=== PATIENT | female | born 1990 | race African-American/Black ===

== ENCOUNTER 2017-01-20 22:21 | Emergency (ER) | payer OTHER ==
[~2017-01-20] VITALS: Ht 162.6 cm; Wt 98.6 kg
[~2017-01-20 22:21] MED LIST: BACTRIM,SEPT1 TABLET PO; CITRATE OF MAG296 ML PO; COLACE100 MG PO; DOCUSATE SODIU100 MG PO; ENDOCET 5-3251 EACH PO; FLONASE16 G1 BOTH NARES; HYDROCODON-ACE1 EAC7 PO; IBUPROFEN800 MG PO; KEFLEX500 MG PO; MACROBID100 MG PO; MIRALAX17 GM PO; MOTRIN800 MG PO; MUCUS RELIEF600 M1 PO; NAPROSYN500 MG PO; NAPROXEN500 MG PO; NEO-SYNEPHRINE-15 M1 BOTH NARES; NIFEDIPINE ER30 MG PO; NOHOMEMEDS; NORCO 5/3251 TABLET PO; NORCO 7.5/321 TABLET PO; PERCOCET 5/31 TABLET PO; PRENATAL TABLE1 EAC3 PO; PROTONIX40 MG PO; REGLAN10 MG PO; ULTRAM50 MG PO; VALTREX1000 MG PO; VOLTAREN 1% GE100 GM TP; ZOFRAN ODT4 MG PO; ZYRTEC10 M2 PO
[2017-01-21 00:37] LABS: HEMATOCRIT 37.7 % (36.0-46.0); MCH 27.5 PG (29.0-34.0); MCHC 32.1 G/DL (30.0-36.0); MCV 85.7 FL (83-99); MEAN PLAT.VOLUME 9.2 uM^3 (9.5-12.4); PLATELET COUNT 300 K/uL (156-360); RBC DIS.WIDTH-CV 12.3 % (11.8-14.6); RBC DIS.WIDTH-SD 38.6 % (39-53)
[2017-01-21 00:50] LABS: CHLORIDE 110 mEq/L (99-109); POTASSIUM 3.3 mEq/L (3.7-5.4); SODIUM 141 mEq/L (136-147)
[2017-01-21 00:53] LABS: GLUCOSE 89 mg/dL (70-99)
[2017-01-21 00:54] LABS: ANION GAP 8 MEQ/L (2-14)
[2017-01-21 00:55] LABS: TOTAL BILIRUBIN 0.1 mg/dL (0.0-1.0)
[2017-01-21 00:56] LABS: ALKALINE PHOSPHATASE 80 IU/L (3-129); GFR ESTIMATE (CALCULATED) > 59 mL/min/
[2017-01-21 00:57] LABS: UREA NITROGEN (BUN) 11 mg/dL (9-23)
[2017-01-21 01:00] LABS: LIPASE 33 U/L (1.0-51.0)
[2017-01-21 01:06] LABS: QUANTITATIVE HCG < 4.0 MIU/ML
[2017-01-21 02:12] LABS: BILIRUBIN NEGATIVE; BLOOD NEGATIVE; COLOR YELLOW ((YELLOW)); GLUCOSE (STRIP) NEGATIVE; KETONES 5; LEUKOCYTES NEGATIVE; NITRITE NEGATIVE; PROTEIN (STRIP) 30; SPECIFIC GRAVITY 1.032 (1.000-1.030); UROBILINOGEN 0.2 MG/DL (0.2-1.0)
[2017-01-21 02:14] LABS: ADD MIUA? NO; UCUL ADDED? NO
[2017-01-21] MEDS ORDERED: PHENERGAN DM SYR1 ML PO (02:32)
[2017-01-21 02:51] VITALS: BP 118/74
== END 2017-01-21 02:52 | disposition home or self-care (01) ==
LOC: EME 22:21
PROVIDERS: Physician Assistant
DX: B34.9 Viral infection, unspecified (principal); I10 Essential (primary) hypertension; F17.200 Nicotine dependence, unspecified, uncomplicated
CPT/HCPCS: 71020; 80053; 81003; 83690; 84702; 85027; 99281; 99284; Q0169

== ENCOUNTER 2017-02-17 02:07 | Emergency (ER) | payer OTHER ==
[~2017-02-17] VITALS: Ht 162.6 cm; Wt 102.1 kg
[~2017-02-17 02:07] MED LIST changes: +PHENERGAN DM SYR1 ML PO
[2017-02-17 02:47] LABS: HEMATOCRIT 37.4 % (36.0-46.0); MCH 27.7 PG (29.0-34.0); MCHC 32.9 G/DL (30.0-36.0); MCV 84.2 FL (83-99); MEAN PLAT.VOLUME 9.3 uM^3 (9.5-12.4); PLATELET COUNT 304 K/uL (156-360); RBC DIS.WIDTH-CV 12.5 % (11.8-14.6); RED BLOOD COUNT 4.44 M/uL (3.80-5.20); WHITE BLOOD COUNT 9.4 K/uL (4.1-10.2)
[2017-02-17 02:58] LABS: CHLORIDE 110 mEq/L (99-109); POTASSIUM 3.7 mEq/L (3.7-5.4); SODIUM 140 mEq/L (136-147)
[2017-02-17 03:00] LABS: GLUCOSE 108 mg/dL (70-99)
[2017-02-17 03:01] LABS: ANION GAP 8 MEQ/L (2-14)
[2017-02-17 03:02] LABS: TOTAL BILIRUBIN 0.2 mg/dL (0.0-1.0)
[2017-02-17 03:03] LABS: ALKALINE PHOSPHATASE 72 IU/L (3-129)
[2017-02-17 03:04] LABS: GFR ESTIMATE (CALCULATED) > 59 mL/min/
[2017-02-17 03:05] LABS: UREA NITROGEN (BUN) 9 mg/dL (9-23)
[2017-02-17 03:09] LABS: TROP-I INTERPRETATION NEGATIVE; TROPONIN-I < 0.01 ng/mL (0.0-0.30)
[2017-02-17 03:13] LABS: QUANTITATIVE HCG < 4.0 MIU/ML
[2017-02-17 04:37] VITALS: BP 125/71
== END 2017-02-17 04:50 | disposition home or self-care (01) ==
LOC: EME 02:07
PROVIDERS: Emergency Medicine
DX: R60.0 Localized edema (principal); I10 Essential (primary) hypertension; F17.200 Nicotine dependence, unspecified, uncomplicated
CPT/HCPCS: 71010; 80053; 81003; 83880; 84484; 84702; 85027; 93005; 93970; 99281; 99285

== ENCOUNTER 2017-05-22 07:37 | Emergency (ER) | payer OTHER ==
[~2017-05-22] VITALS: Ht 162.6 cm; Wt 92.8 kg
[2017-05-22 07:39] VITALS: BP 168/102
== END 2017-05-22 08:00 | disposition left against medical advice (07) ==
LOC: EME 07:37
DX: R10.9 Unspecified abdominal pain (principal); Z53.21 Procedure and treatment not carried out due to patient leaving prior to being seen by health care provider

== ENCOUNTER 2017-11-25 20:16 | Emergency (ER) | payer OTHER ==
[~2017-11-25] VITALS: Ht 162.6 cm; Wt 91.2 kg
[2017-11-25 20:47] LABS: HEMATOCRIT 36.7 % (36.0-46.0); HEMOGLOBIN 12.6 G/DL (11.9-15.5); MCH 30.2 PG (29.0-34.0); MCHC 34.3 G/DL (30.0-36.0); PLATELET COUNT 278 K/uL (156-360); RBC DIS.WIDTH-CV 12.6 % (11.8-14.6); RBC DIS.WIDTH-SD 40.8 % (39-53); RED BLOOD COUNT 4.17 M/uL (3.80-5.20); WHITE BLOOD COUNT 11.8 K/uL (4.1-10.2)
[2017-11-25 20:58] LABS: ALBUMIN 3.8 g/dL (3.2-4.8)
[2017-11-25 20:59] LABS: CHLORIDE 106 mEq/L (99-109); POTASSIUM 3.9 mEq/L (3.7-5.4); SODIUM 135 mEq/L (136-147)
[2017-11-25 21:01] LABS: GLUCOSE 121 mg/dL (70-99); TOTAL PROTEIN 7.2 g/dL (6.4-8.3)
[2017-11-25 21:03] LABS: TOTAL BILIRUBIN 0.2 mg/dL (0.0-1.0)
[2017-11-25 21:04] LABS: ALKALINE PHOSPHATASE 93 IU/L (3-129)
[2017-11-25 21:05] LABS: CREATININE 0.7 mg/dL (0.6-1.3); GFR ESTIMATE (CALCULATED) > 59 mL/min/
[2017-11-25 21:06] LABS: AST (GOT) 7 IU/L (2-34); UREA NITROGEN (BUN) 5 mg/dL (9-23)
[2017-11-25 21:08] LABS: ALT (GPT) 7 IU/L (3-49)
[2017-11-25 21:31] LABS: QUANTITATIVE HCG 22113.5 MIU/ML
[2017-11-25 22:27] LABS: APPEARANCE SL.HAZY ((CLEAR)); BILIRUBIN NEGATIVE; BLOOD NEGATIVE; COLOR YELLOW ((YELLOW)); GLUCOSE (STRIP) NEGATIVE; KETONES NEGATIVE; LEUKOCYTES NEGATIVE; NITRITE NEGATIVE; PROTEIN (STRIP) 30; SPECIFIC GRAVITY 1.023 (1.000-1.030); UROBILINOGEN 0.2 MG/DL (0.2-1.0)
[2017-11-25 23:04] LABS: BACTERIA RARE /HPF; EPITHELIAL CELLS 2+ /HPF; MUCUS 3+ /LPF; RED BLOOD CELLS 0-5 /HPF (0-5); UCUL ADDED? NO; WHITE BLOOD CELLS 0-5 /HPF (0-5)
[2017-11-25 23:17] VITALS: BP 140/72
== END 2017-11-25 23:18 | disposition home or self-care (01) ==
LOC: EME 20:16
DX: O26.892 Other specified pregnancy related conditions, second trimester (principal); R10.9 Unspecified abdominal pain; Z3A.17 17 weeks gestation of pregnancy; O10.912 Unspecified pre-existing hypertension complicating pregnancy, second trimester; O99.332 Smoking (tobacco) complicating pregnancy, second trimester; F17.200 Nicotine dependence, unspecified, uncomplicated
CPT/HCPCS: 76805; 80053; 81003; 84702; 85027; 99281; 99284

== ENCOUNTER 2018-01-25 18:12 | Outpatient (CLI) | payer OTHER ==
[2018-01-25 18:43] VITALS: BP 126/74
[2018-01-25 19:45] VITALS: BP 134/67
[2018-01-25 20:57] LABS: AMPHETAMINE NEGATIVE (500 ng/mL); BARBITURATES NEGATIVE (200 ng/mL); BENZODIAZEPINES NEGATIVE (150 ng/mL); BUPRENORPHINE NEGATIVE (10 ng/mL); COCAINE NEGATIVE (150 ng/mL); METHADONE NEGATIVE (200 ng/mL); METHAMPHETAMINE NEGATIVE (500 ng/mL); OPIATES (MORPHINE) NEGATIVE (100 ng/mL); OXYCODONE PRESUMPTIVE POSITIVE (100 ng/mL); PHENCYCLIDINE NEGATIVE (25 ng/mL); PROPOXYPHENE NEGATIVE (300 ng/mL); THC CANNABINOIDS NEGATIVE (50 ng/mL); TRICYCLIC ANTIDEPRESSANTS NEGATIVE (300 ng/mL)
[2018-01-25 21:24] LABS: BASOPHIL (%) 0.1 % (0-1); EOSINOPHIL (%) 0 % (0-5); HEMATOCRIT 32.5 % (36.0-46.0); HEMOGLOBIN 10.8 G/DL (11.9-15.5); IMMATURE GRANULOCYTE (%) 0.5 % (0.0-0.7); LYMPHOCYTE (%) 8.3 % (15-42); LYMPHOCYTE COUNT 0.6 K/uL (1.0-2.8); MCH 29.3 PG (29.0-34.0); MCHC 33.2 G/DL (30.0-36.0); MCV 88.1 FL (83-99); MONOCYTE (%) 2.8 % (3-12); MONOCYTE COUNT 0.2 K/uL (0-0.8); NEUTROPHIL (%) 88.3 % (45-76); NEUTROPHIL COUNT 6.8 K/uL (1.8-6.4); PLATELET COUNT 258 K/uL (156-360); RBC DIS.WIDTH-SD 38.6 % (39-53); RED BLOOD COUNT 3.69 M/uL (3.80-5.20); WHITE BLOOD COUNT 7.8 K/uL (4.1-10.2)
[2018-01-25 21:34] LABS: CHLORIDE 105 MEQ/L (99-109); POTASSIUM 3.2 MEQ/L (3.7-5.4); SODIUM 135 MEQ/L (136-147); TOTAL BILIRUBIN 0.3 MG/DL (0.0-1.0)
[2018-01-25 21:40] LABS: ALKALINE PHOSPHATASE 121 IU/L (3-129); ALT (GPT) 9 IU/L (3-49); AST (GOT) 11 IU/L (2-34); CREATININE 0.6 MG/DL (0.6-1.3); GFR ESTIMATE (CALCULATED) > 59 mL/min/; GLUCOSE 142 mg/dL (70-99); TOTAL PROTEIN 5.9 G/DL (6.4-8.3); UREA NITROGEN (BUN) 6 mg/dL (9-23)
[2018-01-25 21:57] LABS: ANTI-HIV (AIDS STAT TEST) NONREACTIVE
[2018-01-25 22:33] LABS: SOURCE URINE
[2018-01-25 22:42] VITALS: BP 121/61
[2018-01-25 23:28] VITALS: BP 127/76
[2018-01-26 00:31] VITALS: BP 112/52
[2018-01-26 01:37] VITALS: BP 125/57
[2018-01-26 10:27] LABS: HEPATITIS B SURFACE ANTIGEN Nonreactive
[2018-01-26 10:28] LABS: HIV-1/2 AB/AG COMBO Nonreactive
[2018-01-26 10:51] LABS: TREPONEMA ANTIBODY NEGATIVE (NEGATIVE)
[2018-01-26 11:17] LABS: HEMOGLOBIN A1c (GLYCOHEMOGLOB) 4.6 % (Below 5.7)
[2018-01-26 16:11] LABS: CANDIDA DNA PROBE NEGATIVE; GARDNERELLA DNA PROBE NEGATIVE; TRICHOMONAS DNA PROBE NEGATIVE
[2018-01-27 13:54] LABS: CHLAMYDIA TRACHOMATIS NEGATIVE; NEISSERIA GONORRHOEAE NEGATIVE
== END 2018-01-26 02:19 | disposition home or self-care (01) ==
LOC: LDRP-OP 18:12 → 2WEST 18:13
PROVIDERS: Advanced Practice Midwife
DX: O26.892 Other specified pregnancy related conditions, second trimester (principal); R10.9 Unspecified abdominal pain; O34.219 Maternal care for unspecified type scar from previous cesarean delivery; O09.12 Supervision of pregnancy with history of ectopic pregnancy, second trimester; O09.32 Supervision of pregnancy with insufficient antenatal care, second trimester; O36.5920 Maternal care for other known or suspected poor fetal growth, second trimester, not applicable or unspecified; Z3A.26 26 weeks gestation of pregnancy; Z87.51 Personal history of pre-term labor; Z87.59 Personal history of other complications of pregnancy, childbirth and the puerperium
CPT/HCPCS: 59025; 76805; 80053; 82731; 83036; 85025; 86762; 86780; 86850; 86900; 86901; 87340; 87389; 87480; 87491; 87510; 87591; 87660; G0378; J3480

== ENCOUNTER 2018-03-16 15:16 | Outpatient (CLI) | payer OTHER ==
[2018-03-16] VITALS (19 sets, daily range): BP systolic 139–193; BP diastolic 74–112
[~2018-03-16] VITALS: Ht 162.6 cm; Wt 97.5 kg
[2018-03-16 17:13] LABS: BASOPHIL (%) 0.4 % (0-1); EOSINOPHIL (%) 1.5 % (0-5); EOSINOPHIL COUNT 0.1 K/uL (0-0.3); HEMATOCRIT 34.6 % (36.0-46.0); HEMOGLOBIN 11.4 G/DL (11.9-15.5); IMMATURE GRANULOCYTE (%) 0.6 % (0.0-0.7); LYMPHOCYTE (%) 29.6 % (15-42); LYMPHOCYTE COUNT 2.7 K/uL (1.0-2.8); MCH 28.4 PG (29.0-34.0); MCHC 32.9 G/DL (30.0-36.0); MCV 86.1 FL (83-99); MONOCYTE (%) 9.5 % (3-12); MONOCYTE COUNT 0.9 K/uL (0-0.8); NEUTROPHIL (%) 58.4 % (45-76); NEUTROPHIL COUNT 5.2 K/uL (1.8-6.4); NRBC (%) 0.2 /100 WBC (0-0); PLATELET COUNT 235 K/uL (156-360); RBC DIS.WIDTH-CV 12.6 % (11.8-14.6); RBC DIS.WIDTH-SD 39.4 % (39-53); RED BLOOD COUNT 4.02 M/uL (3.80-5.20)
[2018-03-16 17:30] LABS: ALKALINE PHOSPHATASE 202 IU/L (3-129); ALT (GPT) 5 IU/L (3-49); AST (GOT) 9 IU/L (2-34); CHLORIDE 105 MEQ/L (99-109); CREATININE 0.7 MG/DL (0.6-1.3); GFR ESTIMATE (CALCULATED) > 59 mL/min/; GLUCOSE 87 mg/dL (70-99); LACTATE DEHYDROGENASE 162 IU/L (20-246); POTASSIUM 3.7 MEQ/L (3.7-5.4); SODIUM 135 MEQ/L (136-147); TOTAL PROTEIN 6.2 G/DL (6.4-8.3); UREA NITROGEN (BUN) 10 mg/dL (9-23); URIC ACID 5.1 mg/dL (3.1-9.2)
[2018-03-16 17:33] LABS: APPEARANCE SL.HAZY ((CLEAR)); BILIRUBIN NEGATIVE; BLOOD NEGATIVE; COLOR YELLOW ((YELLOW)); GLUCOSE (STRIP) NEGATIVE; KETONES NEGATIVE; LEUKOCYTES NEGATIVE; NITRITE NEGATIVE; PROTEIN (STRIP) 30; SPECIFIC GRAVITY 1.013 (1.000-1.030); UROBILINOGEN 0.2 MG/DL (0.2-1.0)
[2018-03-16 17:39] LABS: TOTAL BILIRUBIN 0.2 MG/DL (0.0-1.0)
[2018-03-16 17:46] LABS: BACTERIA RARE /HPF; EPITHELIAL CELLS 1+ /HPF; MUCUS TRACE /LPF; RED BLOOD CELLS 0-5 /HPF (0-5); UCUL ADDED? NO; WHITE BLOOD CELLS 0-5 /HPF (0-5)
[2018-03-16 18:01] LABS: AMPHETAMINE NEGATIVE (500 ng/mL); BARBITURATES NEGATIVE (200 ng/mL); BENZODIAZEPINES NEGATIVE (150 ng/mL); BUPRENORPHINE NEGATIVE (10 ng/mL); COCAINE NEGATIVE (150 ng/mL); METHADONE NEGATIVE (200 ng/mL); METHAMPHETAMINE NEGATIVE (500 ng/mL); OPIATES (MORPHINE) NEGATIVE (100 ng/mL); OXYCODONE PRESUMPTIVE POSITIVE (100 ng/mL); PHENCYCLIDINE NEGATIVE (25 ng/mL); PROPOXYPHENE NEGATIVE (300 ng/mL); THC CANNABINOIDS NEGATIVE (50 ng/mL); TRICYCLIC ANTIDEPRESSANTS NEGATIVE (300 ng/mL)
[2018-03-16 20:53] LABS: UR CREATININE CONCENTRATION 94.4 MG/DL
== END 2018-03-16 23:24 | disposition short-term general hospital (02) ==
LOC: LDRP-OP 15:16 → 2WEST 15:18 → LDRP-OP 06-02 02:26
PROVIDERS: Advanced Practice Midwife
DX: O14.93 Unspecified pre-eclampsia, third trimester (principal); O99.213 Obesity complicating pregnancy, third trimester; Z3A.32 32 weeks gestation of pregnancy; O99.333 Smoking (tobacco) complicating pregnancy, third trimester; F17.200 Nicotine dependence, unspecified, uncomplicated; O34.219 Maternal care for unspecified type scar from previous cesarean delivery; O99.323 Drug use complicating pregnancy, third trimester; F11.10 Opioid abuse, uncomplicated
CPT/HCPCS: 59025; 80053; 81003; 82570; 83615; 84156; 84550; 85025; G0378; J0360; J0702; J3475; J7030